=== PATIENT | female | born 1990 | race Caucasian/White ===

== ENCOUNTER → 2018-11-15 | Outpatient (CLI) | payer MEDICARE ==
[2018-11-15 09:58] VITALS: BP 119/67
[2018-11-15 10:32] VITALS: BP 112/63
[2018-11-15 10:59] VITALS: BP 108/68
[2018-11-15 11:26] VITALS: BP 114/66
[2018-11-15 11:53] VITALS: BP 110/63
--- NOTE | 2018-11-15 12:45 | NUR ---
Discharge Note: GEOFFREY JOSE Discharge instructions and discharge home medications reviewed with Patient and spouse and a copy given. All questions have been answered and understanding verbalized. The following instructions and handouts were given: Lumbar Puncture, After Care Discontinued lines and drains: None to dc. Patient discharged to home with via car.
--- NOTE | 2018-11-15 13:10 | RAD ---
Fluoroscopically guided lumbar puncture, 11/15/2018: History: Headaches and eye symptoms, possible pseudotumor cerebri Under local anesthesia, aseptic conditions and fluoroscopic guidance a lumbar puncture was performed at the L2-3 level utilizing a 20-gauge spinal needle. Good clear CSF flow was obtained. The opening pressure was 16 cm of water. A total of 8.5 cc of CSF was obtained and sent to lab for appropriate studies. The closing pressure was measured at 11 cm of water. The spinal needle was then removed and hemostasis obtained. 1.3 minutes of fluoroscopy time was utilized. One fluoroscopic spot image was recorded. The patient tolerated the procedure well. She will be monitored in the department for 3 hours and then discharged if no problems develop.
[2018-11-15 13:43] LABS: CSF PROTEIN 29.3 mg/dL (15.0-45.0)
[2018-11-15 17:39] LABS: CSF CLARITY CLEAR; CSF COLOR COLORLESS; CSF RBC COUNT 1 /cmm (Not Established); CSF WBC COUNT 33 /cmm (Not Established)
[2018-11-15 17:40] LABS: CSF MON % 99 %; CSF PMN % 1 %
[2018-11-25 07:14] LABS: VIRAL CULT FINAL No virus isolated. (.)
== END | disposition home or self-care (01) ==
LOC: RAD 08:27
PROVIDERS: ATTEND Psychiatry & Neurology Neurology with Special Qualifications in Child Neurology
DX: R51 Headache (principal)
CPT/HCPCS: 62270; 82945; 84157; 87071; 87075; 87102; 87252; 89051

== ENCOUNTER → 2019-01-21 | Outpatient (CLI) | payer MEDICARE ==
[2018-11-15 11:53] VITALS: BP 110/63
--- NOTE | 2019-01-21 13:50 | [facility] ---
ANGIOGRAPHY BRAIN WO CONTRAST History: Benign intracranial hypertension Technique: 3-D [id number] MR venogram was performed of the brain. Axial diffusion and FLAIR images were obtained. Comparison: None Findings: No acute infarct. No hydrocephalus. Imaged orbits are unremarkable. Imaged paranasal sinuses and mastoid air cells are clear. No evidence of dural venous sinus thrombosis. The superior sagittal sinus preferentially drains into the right transverse sinus. There is focal narrowing of the right mid transverse sinus. There is additional focal narrowing of the left mid transverse sinus. Impression: 1. Focal narrowing of the bilateral mid transverse sinuses, may indicate stenosis. 2. No evidence of dural venous sinus thrombosis. Electronically signed by: Ramirez Delong DO (01/21/2019 1:47 PM) [id number]
== END | disposition home or self-care (01) ==
LOC: KCIC MRI 11:29
PROVIDERS: ATTEND Psychiatry & Neurology Neurology with Special Qualifications in Child Neurology
DX: J34.89 Other specified disorders of nose and nasal sinuses (principal); G93.2 Benign intracranial hypertension
CPT/HCPCS: 70544